=== PATIENT | male | born 1930 | race Caucasian/White ===

== ENCOUNTER 2017-10-01 11:16 | Inpatient (IN) | payer OTHER ==
[~2017-10-01] VITALS: Ht 180.3 cm; Wt 97.0 kg
[2017-10-01 12:18] LABS: BASOPHIL (%) 0.4 % (0-1); BASOPHIL COUNT 0.1 K/uL (0-0.1); EOSINOPHIL (%) 0.6 % (0-5); EOSINOPHIL COUNT 0.1 K/uL (0-0.3); HEMATOCRIT 43.3 % (38.0-50.0); HEMOGLOBIN 14.8 G/DL (12.5-16.6); IMMATURE GRANULOCYTE (%) 1.1 % (0.0-0.7); LYMPHOCYTE (%) 14.2 % (15-42); MCHC 34.2 G/DL (30.0-36.0); MCV 87.7 FL (86-99); MONOCYTE COUNT 1.8 K/uL (0-0.8); NEUTROPHIL (%) 70.7 % (45-76); NEUTROPHIL COUNT 9.9 K/uL (1.8-6.4); PLATELET COUNT 246 K/uL (156-360); RBC DIS.WIDTH-CV 13.3 % (11.8-14.6); RBC DIS.WIDTH-SD 42.5 % (39-53); RED BLOOD COUNT 4.94 M/uL (4.00-5.50); WHITE BLOOD COUNT 14.1 K/uL (4.1-10.2)
[2017-10-01 12:44] LABS: ALBUMIN 3.1 G/DL (3.2-4.8); CHLORIDE 98 MEQ/L (99-109); POTASSIUM 4.2 MEQ/L (3.7-5.4); SODIUM 131 MEQ/L (136-147); TOTAL BILIRUBIN 1.1 MG/DL (0.0-1.0)
[2017-10-01 12:49] LABS: ALKALINE PHOSPHATASE 64 IU/L (3-129); ALT (GPT) 38 IU/L (3-49); AST (GOT) 27 IU/L (2-34); CREATININE 0.9 MG/DL (0.6-1.3); GFR ESTIMATE (CALCULATED) > 59 mL/min/ (58.99-99999); GLUCOSE 283 mg/dL (70-99); TOTAL PROTEIN 6.9 G/DL (6.4-8.3); UREA NITROGEN (BUN) 22 mg/dL (9-23)
[2017-10-01 14:19] LABS: ERTH.SED.RATE 72 MM/HR (0-20)
[2017-10-01] MEDS ORDERED: METFORMIN HCL500 MG PO (16:06)
[2017-10-01 16:32] VITALS: BP 167/73
[2017-10-01 21:28] LABS: APPEARANCE CLEAR ((CLEAR)); BILIRUBIN NEGATIVE; BLOOD SMALL; COLOR YELLOW ((YELLOW)); GLUCOSE (STRIP) 50; KETONES NEGATIVE; LEUKOCYTES NEGATIVE; NITRITE NEGATIVE; PROTEIN (STRIP) NEGATIVE
[2017-10-01 21:30] LABS: BACTERIA NONE SEEN /HPF; EPITHELIAL CELLS RARE /HPF; MUCUS TRACE /LPF; RED BLOOD CELLS 0-5 /HPF (0-5); UCUL ADDED? NO; WHITE BLOOD CELLS 0-5 /HPF (0-5)
[2017-10-01 23:52] VITALS: BP 168/92
[2017-10-02 06:14] LABS: HEMATOCRIT 39.9 % (38.0-50.0); HEMOGLOBIN 13.1 G/DL (12.5-16.6); MCHC 32.8 G/DL (30.0-36.0); MCV 88.5 FL (86-99); PLATELET COUNT 243 K/uL (156-360); RBC DIS.WIDTH-CV 13.4 % (11.8-14.6); RBC DIS.WIDTH-SD 43.8 % (39-53); RED BLOOD COUNT 4.51 M/uL (4.00-5.50); WHITE BLOOD COUNT 12.3 K/uL (4.1-10.2)
[2017-10-02 06:43] LABS: CHLORIDE 102 MEQ/L (99-109); CREATININE 0.7 MG/DL (0.6-1.3); GFR ESTIMATE (CALCULATED) > 59 mL/min/ (58.99-99999); GLUCOSE 193 mg/dL (70-99); SODIUM 134 MEQ/L (136-147); UREA NITROGEN (BUN) 17 mg/dL (9-23)
[2017-10-02 07:54] VITALS: BP 143/81
[2017-10-02 23:53] VITALS: BP 151/67
[2017-10-03 07:22] VITALS: BP 180/84
[2017-10-03 07:25] LABS: Estimated Average Glucose 229 mg/dL (70-123); HEMOGLOBIN A1c (GLYCOHEMOGLOB) 9.6 % HGB (Below 5.7)
[2017-10-03 09:07] LABS: BASOPHIL (%) 0.6 % (0-1); BASOPHIL COUNT 0.1 K/uL (0-0.1); EOSINOPHIL (%) 1.2 % (0-5); EOSINOPHIL COUNT 0.2 K/uL (0-0.3); HEMATOCRIT 41.2 % (38.0-50.0); HEMOGLOBIN 13.7 G/DL (12.5-16.6); IMMATURE GRANULOCYTE (%) 1.8 % (0.0-0.7); LYMPHOCYTE (%) 14.4 % (15-42); MCH 29.3 PG (29.0-34.0); MCHC 33.3 G/DL (30.0-36.0); MONOCYTE (%) 10.6 % (3-12); MONOCYTE COUNT 1.5 K/uL (0-0.8); NEUTROPHIL (%) 71.4 % (45-76); NEUTROPHIL COUNT 9.9 K/uL (1.8-6.4); PLATELET COUNT 282 K/uL (156-360); RBC DIS.WIDTH-CV 13.4 % (11.8-14.6); RBC DIS.WIDTH-SD 43.3 % (39-53); RED BLOOD COUNT 4.68 M/uL (4.00-5.50); WHITE BLOOD COUNT 13.9 K/uL (4.1-10.2)
[2017-10-03 09:30] LABS: CHLORIDE 105 MEQ/L (99-109); CREATININE 0.6 MG/DL (0.6-1.3); GFR ESTIMATE (CALCULATED) > 59 mL/min/ (58.99-99999); GLUCOSE 152 mg/dL (70-99); POTASSIUM 3.8 MEQ/L (3.7-5.4); SODIUM 135 MEQ/L (136-147); UREA NITROGEN (BUN) 11 mg/dL (9-23)
[2017-10-03 15:57] VITALS: BP 178/84
[2017-10-04] VITALS: BP 177/95
[2017-10-04 07:29] LABS: BASOPHIL (%) 0.6 % (0-1); BASOPHIL COUNT 0.1 K/uL (0-0.1); EOSINOPHIL (%) 1.4 % (0-5); EOSINOPHIL COUNT 0.2 K/uL (0-0.3); HEMATOCRIT 40.5 % (38.0-50.0); HEMOGLOBIN 13.8 G/DL (12.5-16.6); IMMATURE GRANULOCYTE (%) 1.9 % (0.0-0.7); LYMPHOCYTE COUNT 2.2 K/uL (1.0-2.8); MCH 30.2 PG (29.0-34.0); MCHC 34.1 G/DL (30.0-36.0); MCV 88.6 FL (86-99); MONOCYTE (%) 12.6 % (3-12); MONOCYTE COUNT 1.7 K/uL (0-0.8); NEUTROPHIL (%) 67.5 % (45-76); NEUTROPHIL COUNT 9.3 K/uL (1.8-6.4); PLATELET COUNT 295 K/uL (156-360); RBC DIS.WIDTH-CV 13.7 % (11.8-14.6); RBC DIS.WIDTH-SD 44.4 % (39-53); RED BLOOD COUNT 4.57 M/uL (4.00-5.50); WHITE BLOOD COUNT 13.7 K/uL (4.1-10.2)
[2017-10-04 07:31] VITALS: BP 186/76
[2017-10-04 08:12] LABS: C-REACTIVE PROTEIN 231.8 MG/L (0-10); CHLORIDE 104 MEQ/L (99-109); CREATININE 0.7 MG/DL (0.6-1.3); GFR ESTIMATE (CALCULATED) > 59 mL/min/ (58.99-99999); MAGNESIUM 2.1 mg/dl (1.3-2.7); POTASSIUM 3.7 MEQ/L (3.7-5.4); SODIUM 137 MEQ/L (136-147); UREA NITROGEN (BUN) 11 mg/dL (9-23)
[2017-10-04 08:15] LABS: GLUCOSE 108 mg/dL (70-99)
[2017-10-04 08:30] LABS: ERTH.SED.RATE 66 MM/HR (0-20)
[2017-10-04 15:49] VITALS: BP 174/88
[2017-10-05 01:00] VITALS: BP 183/73
[2017-10-05 06:24] LABS: HEMATOCRIT 42.9 % (38.0-50.0); HEMOGLOBIN 14.5 G/DL (12.5-16.6); MCH 30.1 PG (29.0-34.0); MCHC 33.8 G/DL (30.0-36.0); MCV 89.2 FL (86-99); PLATELET COUNT 316 K/uL (156-360); RBC DIS.WIDTH-CV 13.8 % (11.8-14.6); RBC DIS.WIDTH-SD 45.2 % (39-53); RED BLOOD COUNT 4.81 M/uL (4.00-5.50)
[2017-10-05 06:56] LABS: CHLORIDE 110 MEQ/L (99-109); GLUCOSE 99 mg/dL (70-99); POTASSIUM 3.7 MEQ/L (3.7-5.4); UREA NITROGEN (BUN) 17 mg/dL (9-23)
[2017-10-05 06:58] LABS: CREATININE 1.3 MG/DL (0.6-1.3); GFR ESTIMATE (CALCULATED) 56 mL/min/ (58.99-99999); SODIUM 144 MEQ/L (136-147)
[2017-10-05 07:46] VITALS: BP 180/88
[2017-10-05 16:11] VITALS: BP 142/78
[2017-10-06 00:01] VITALS: BP 166/83
[2017-10-06 06:38] LABS: HEMATOCRIT 44.8 % (38.0-50.0); HEMOGLOBIN 14.6 G/DL (12.5-16.6); MCH 29.5 PG (29.0-34.0); MCHC 32.6 G/DL (30.0-36.0); MCV 90.5 FL (86-99); PLATELET COUNT 346 K/uL (156-360); RBC DIS.WIDTH-CV 13.8 % (11.8-14.6); RBC DIS.WIDTH-SD 46.3 % (39-53); RED BLOOD COUNT 4.95 M/uL (4.00-5.50); WHITE BLOOD COUNT 10.6 K/uL (4.1-10.2)
[2017-10-06 08:05] VITALS: BP 188/89
[2017-10-06 16:28] VITALS: BP 184/84
[2017-10-06 23:58] VITALS: BP 162/80
[2017-10-07 06:41] LABS: HEMATOCRIT 42.7 % (38.0-50.0); HEMOGLOBIN 13.9 G/DL (12.5-16.6); MCH 28.7 PG (29.0-34.0); MCHC 32.6 G/DL (30.0-36.0); PLATELET COUNT 346 K/uL (156-360); RBC DIS.WIDTH-CV 13.3 % (11.8-14.6); RBC DIS.WIDTH-SD 42.9 % (39-53); RED BLOOD COUNT 4.85 M/uL (4.00-5.50); WHITE BLOOD COUNT 11.7 K/uL (4.1-10.2)
[2017-10-07 07:09] LABS: CHLORIDE 108 MEQ/L (99-109); CREATININE 1.2 MG/DL (0.6-1.3); GFR ESTIMATE (CALCULATED) > 59 mL/min/ (58.99-99999); GLUCOSE 96 mg/dL (70-99); POTASSIUM 3.5 MEQ/L (3.7-5.4); SODIUM 144 MEQ/L (136-147); UREA NITROGEN (BUN) 14 mg/dL (9-23)
[2017-10-07 07:46] VITALS: BP 162/85
[2017-10-07] MEDS ORDERED: LISINOPRIL10 MG PO (11:04)
[2017-10-07] MEDS ORDERED: GENTAMICIN SULFA5 ML BOTH EYES (11:05)
[2017-10-07] MEDS ORDERED: FLORASTOR250 MG PO (11:05)
[2017-10-07] MEDS ORDERED: SANTYL30 GM TP (11:06)
[2017-10-07] MEDS ORDERED: LEVEMIR100 UNIT/2 SC (11:06)
[2017-10-07] MEDS ORDERED: AMLODIPINE BESYL5 MG PO (11:07)
[2017-10-07] MEDS ORDERED: COLCHICINE0.6 M1 PO (11:07)
[2017-10-07] MEDS ORDERED: LIDOCARE1 EACH TP (11:09)
[2017-10-07] MEDS ORDERED: AUGMENTIN875 MG PO (11:43)
[2017-10-07] MEDS ORDERED: BACTRIM,SEPT1 TABLET PO (11:43)
== END 2017-10-07 15:23 | DRG 638 ==
LOC: EME 11:16 → EDOF 13:51 → 5SOUTH 13:51 → ENRESERV 13:52 → 5SOUTH 16:14
PROVIDERS: Emergency Medicine; Internal Medicine; Physician Assistant
PROC: 0HDMXZZ Extraction of Right Foot Skin, External Approach (ICD-10-PCS; principal; 2017-10-04)
DX: E11.621 Type 2 diabetes mellitus with foot ulcer (principal); L97.519 Non-pressure chronic ulcer of other part of right foot with unspecified severity; L97.419 Non-pressure chronic ulcer of right heel and midfoot with unspecified severity; L89.620 Pressure ulcer of left heel, unstageable; E11.628 Type 2 diabetes mellitus with other skin complications; L03.115 Cellulitis of right lower limb; L03.114 Cellulitis of left upper limb; S81.801A Unspecified open wound, right lower leg, initial encounter; E86.0 Dehydration; E86.1 Hypovolemia; E11.51 Type 2 diabetes mellitus with diabetic peripheral angiopathy without gangrene; I70.234 Atherosclerosis of native arteries of right leg with ulceration of heel and midfoot; I70.202 Unspecified atherosclerosis of native arteries of extremities, left leg; E87.1 Hypo-osmolality and hyponatremia; B96.89 Other specified bacterial agents as the cause of diseases classified elsewhere; L03.031 Cellulitis of right toe; M25.422 Effusion, left elbow; R70.0 Elevated erythrocyte sedimentation rate; R79.82 Elevated C-reactive protein (CRP); M10.9 Gout, unspecified; I10 Essential (primary) hypertension; M17.0 Bilateral primary osteoarthritis of knee; H10.89 Other conjunctivitis; W01.0XXA Fall on same level from slipping, tripping and stumbling without subsequent striking against object, initial encounter; Y92.009 Unspecified place in unspecified non-institutional (private) residence as the place of occurrence of the external cause; Z79.84 Long term (current) use of oral hypoglycemic drugs
CPT/HCPCS: 73080; 73720; 75635; 80048; 80053; 80202; 81003; 82010; 82948; 83036; 83605; 83735; 84550; 85025; 85027; 85651; 86140; 87040; 87070; 87075; 87076; 87205; 87641; 93926; 93971; 97530 GO; 97530 GP; 99281; 99285; A6260; J1650; J1815; J2270; J2543; J3370; J7030; J7050; S0028

== ENCOUNTER 2017-10-09 14:42 | Inpatient (IN) | payer OTHER ==
[~2017-10-09] VITALS: Ht 175.3 cm; Wt 95.4 kg
[~2017-10-09 14:42] MED LIST: AMLODIPINE BESYL5 MG PO; AUGMENTIN875 MG PO; BACTRIM,SEPT1 TABLET PO; COLCHICINE0.6 M1 PO; FLORASTOR250 MG PO; GENTAMICIN SULFA5 ML BOTH EYES; LEVEMIR100 UNIT/2 SC; LIDOCARE1 EACH TP; LISINOPRIL10 MG PO; METFORMIN HCL500 MG PO; SANTYL30 GM TP
[2017-10-09 15:25] LABS: BASOPHIL (%) 0.3 % (0-1); BASOPHIL COUNT 0.1 K/uL (0-0.1); EOSINOPHIL (%) 0.3 % (0-5); EOSINOPHIL COUNT 0.1 K/uL (0-0.3); HEMATOCRIT 42.1 % (38.0-50.0); HEMOGLOBIN 14.3 G/DL (12.5-16.6); IMMATURE GRANULOCYTE (%) 0.9 % (0.0-0.7); LYMPHOCYTE (%) 6.9 % (15-42); LYMPHOCYTE COUNT 1.8 K/uL (1.0-2.8); MCH 29.8 PG (29.0-34.0); MCV 87.7 FL (86-99); MONOCYTE (%) 6.6 % (3-12); MONOCYTE COUNT 1.7 K/uL (0-0.8); NEUTROPHIL COUNT 22.3 K/uL (1.8-6.4); PLATELET COUNT 377 K/uL (156-360); RBC DIS.WIDTH-CV 13.7 % (11.8-14.6); RBC DIS.WIDTH-SD 44.1 % (39-53); WHITE BLOOD COUNT 26.3 K/uL (4.1-10.2)
[2017-10-09 15:27] LABS: INTER. NORMALIZED RATIO 1.3
[2017-10-09 15:30] LABS: PTT 28.6 SEC (25-37)
[2017-10-09 15:37] LABS: AMYLASE 98 IU/L (1-118); CHLORIDE 103 mEq/L (99-109); POTASSIUM 3.4 mEq/L (3.7-5.4)
[2017-10-09 15:39] LABS: GLUCOSE 110 mg/dL (70-99)
[2017-10-09 15:40] LABS: SODIUM 136 mEq/L (136-147)
[2017-10-09 15:42] LABS: SERUM ETHYL ALCOHOL < 10 mg/dL
[2017-10-09 15:43] LABS: CREATININE 3.5 mg/dL (0.6-1.3); GFR ESTIMATE (CALCULATED) 18 mL/min/ (58.99-99999)
[2017-10-09 15:45] LABS: TROP-I INTERPRETATION NEGATIVE; TROPONIN-I 0.01 ng/mL (0.0-0.30); UREA NITROGEN (BUN) 25 mg/dL (9-23)
[2017-10-09 15:46] LABS: LIPASE 18 U/L (1.0-51.0)
[2017-10-09 16:16] LABS: HDL CHOLESTEROL 30 MG/DL (Desirable>=40); LDL CHOLESTEROL 78 mg/dL (Desirable<100); NON-HDL CHOLESTEROL 105 mg/dL (Desirable<160); TOTAL CHOLESTEROL 135 mg/dL (Desirable<200); TRIGLYCERIDES 133 MG/DL (Normal: <150)
[2017-10-09] MEDS ORDERED: TYLENOL REGULA325 MG PO (16:47)
[2017-10-09 16:50] LABS: TOTAL PROTEIN 6.8 g/dL (6.4-8.3)
[2017-10-09 16:52] LABS: TOTAL BILIRUBIN 0.4 mg/dL (0.0-1.0)
[2017-10-09 16:53] LABS: ALKALINE PHOSPHATASE 61 IU/L (3-129)
[2017-10-09 16:55] LABS: AST (GOT) 25 IU/L (2-34)
[2017-10-09 16:56] LABS: ALT (GPT) 35 IU/L (3-49); DIRECT BILIRUBIN 0.3 mg/dL (0.0-0.3)
[2017-10-09 16:58] LABS: APPEARANCE CLEAR ((CLEAR)); BILIRUBIN NEGATIVE; BLOOD LARGE; COLOR YELLOW ((YELLOW)); GLUCOSE (STRIP) NEGATIVE; KETONES NEGATIVE; LEUKOCYTES NEGATIVE; NITRITE NEGATIVE; PROTEIN (STRIP) NEGATIVE; UROBILINOGEN 0.2 MG/DL (0.2-1.0)
[2017-10-09 17:12] LABS: AMPHETAMINE NEGATIVE (500 ng/mL); BACTERIA NONE SEEN /HPF; BARBITURATES NEGATIVE (200 ng/mL); BENZODIAZEPINES NEGATIVE (150 ng/mL); COCAINE NEGATIVE (150 ng/mL); EPITHELIAL CELLS RARE /HPF; METHADONE NEGATIVE (200 ng/mL); METHAMPHETAMINE NEGATIVE (500 ng/mL); MUCUS NONE SEEN /LPF; OPIATES (MORPHINE) NEGATIVE (100 ng/mL); OXYCODONE NEGATIVE (100 ng/mL); PHENCYCLIDINE NEGATIVE (25 ng/mL); RED BLOOD CELLS TNTC /HPF (0-5); THC CANNABINOIDS NEGATIVE (50 ng/mL); TRICYCLIC ANTIDEPRESSANTS NEGATIVE (300 ng/mL); UCUL ADDED? YES; WHITE BLOOD CELLS 0-5 /HPF (0-5)
[2017-10-09 17:13] LABS: BUPRENORPHINE NEGATIVE (10 ng/mL); PROPOXYPHENE NEGATIVE (300 ng/mL)
[2017-10-09 17:59] LABS: Estimated Average Glucose 220 mg/dL (70-123); HEMOGLOBIN A1c (GLYCOHEMOGLOB) 9.3 % HGB (Below 5.7)
[2017-10-09 20:55] VITALS: BP 181/94
[2017-10-10] VITALS (7 sets, daily range): BP systolic 169–198; BP diastolic 84–104
[2017-10-10 06:34] LABS: BASOPHIL (%) 0.3 % (0-1); BASOPHIL COUNT 0.1 K/uL (0-0.1); EOSINOPHIL (%) 0.3 % (0-5); EOSINOPHIL COUNT 0.1 K/uL (0-0.3); HEMATOCRIT 41.8 % (38.0-50.0); HEMOGLOBIN 13.8 G/DL (12.5-16.6); IMMATURE GRANULOCYTE (%) 0.9 % (0.0-0.7); LYMPHOCYTE (%) 7.2 % (15-42); LYMPHOCYTE COUNT 1.7 K/uL (1.0-2.8); MCH 29.2 PG (29.0-34.0); MCV 88.4 FL (86-99); MONOCYTE (%) 7.1 % (3-12); MONOCYTE COUNT 1.6 K/uL (0-0.8); NEUTROPHIL (%) 84.2 % (45-76); NEUTROPHIL COUNT 19.3 K/uL (1.8-6.4); PLATELET COUNT 368 K/uL (156-360); RBC DIS.WIDTH-CV 13.9 % (11.8-14.6); RBC DIS.WIDTH-SD 45.1 % (39-53); RED BLOOD COUNT 4.73 M/uL (4.00-5.50)
[2017-10-10 07:16] LABS: CHLORIDE 107 MEQ/L (99-109); CREATININE 3.7 MG/DL (0.6-1.3); GFR ESTIMATE (CALCULATED) 17 mL/min/ (58.99-99999); GLUCOSE 154 mg/dL (70-99); POTASSIUM 3.4 MEQ/L (3.7-5.4); UREA NITROGEN (BUN) 30 mg/dL (9-23)
[2017-10-10 07:21] LABS: SODIUM 143 MEQ/L (136-147)
[2017-10-11 03:45] VITALS: BP 179/86
[2017-10-11 06:43] LABS: BASOPHIL (%) 0.5 % (0-1); BASOPHIL COUNT 0.1 K/uL (0-0.1); EOSINOPHIL (%) 1.7 % (0-5); EOSINOPHIL COUNT 0.3 K/uL (0-0.3); HEMATOCRIT 44.5 % (38.0-50.0); HEMOGLOBIN 14.5 G/DL (12.5-16.6); LYMPHOCYTE (%) 9.6 % (15-42); LYMPHOCYTE COUNT 1.6 K/uL (1.0-2.8); MCH 29.1 PG (29.0-34.0); MCHC 32.6 G/DL (30.0-36.0); MCV 89.2 FL (86-99); MONOCYTE COUNT 1.5 K/uL (0-0.8); NEUTROPHIL (%) 78.2 % (45-76); PLATELET COUNT 426 K/uL (156-360); RBC DIS.WIDTH-CV 14.1 % (11.8-14.6); RBC DIS.WIDTH-SD 45.5 % (39-53); RED BLOOD COUNT 4.99 M/uL (4.00-5.50); WHITE BLOOD COUNT 16.6 K/uL (4.1-10.2)
[2017-10-11 07:13] LABS: ALBUMIN 2.7 G/DL (3.2-4.8); ALKALINE PHOSPHATASE 54 IU/L (3-129); ALT (GPT) 21 IU/L (3-49); AST (GOT) 16 IU/L (2-34); CHLORIDE 114 MEQ/L (99-109); CHLORIDE 115 MEQ/L (99-109); GFR ESTIMATE (CALCULATED) 32 mL/min/ (58.99-99999); GFR ESTIMATE (CALCULATED) 34 mL/min/ (58.99-99999); GLUCOSE 212 mg/dL (70-99); GLUCOSE 215 mg/dL (70-99); PHOSPHORUS 2.8 mg/dL (2.5-4.9); POTASSIUM 3.6 MEQ/L (3.7-5.4); SODIUM 150 MEQ/L (136-147); TOTAL BILIRUBIN 0.6 MG/DL (0.0-1.0); UREA NITROGEN (BUN) 22 mg/dL (9-23); VANCOMYCIN, TROUGH 11.6 MCG/ML (10-20)
[2017-10-11 07:15] LABS: CREATININE 2.1 MG/DL (0.6-1.3)
[2017-10-11 07:51] VITALS: BP 190/92
[2017-10-11 12:16] VITALS: BP 186/88
[2017-10-11 16:04] VITALS: BP 184/90
[2017-10-11 19:13] VITALS: BP 189/90
[2017-10-11 22:11] LABS: C DIFF TOXIN NEGATIVE (NEGATIVE)
[2017-10-11 23:28] VITALS: BP 182/96; BP 182/960
[2017-10-12 03:38] VITALS: BP 181/92
[2017-10-12 07:18] LABS: BASOPHIL (%) 0.6 % (0-1); BASOPHIL COUNT 0.1 K/uL (0-0.1); EOSINOPHIL (%) 2.7 % (0-5); EOSINOPHIL COUNT 0.4 K/uL (0-0.3); HEMATOCRIT 44.1 % (38.0-50.0); HEMOGLOBIN 14.3 G/DL (12.5-16.6); IMMATURE GRANULOCYTE (%) 0.9 % (0.0-0.7); LYMPHOCYTE (%) 13.4 % (15-42); LYMPHOCYTE COUNT 1.9 K/uL (1.0-2.8); MCH 29.5 PG (29.0-34.0); MCHC 32.4 G/DL (30.0-36.0); MCV 91.1 FL (86-99); MONOCYTE (%) 8.5 % (3-12); MONOCYTE COUNT 1.2 K/uL (0-0.8); NEUTROPHIL (%) 73.9 % (45-76); NEUTROPHIL COUNT 10.6 K/uL (1.8-6.4); PLATELET COUNT 412 K/uL (156-360); RBC DIS.WIDTH-CV 14.4 % (11.8-14.6); RBC DIS.WIDTH-SD 48.2 % (39-53); RED BLOOD COUNT 4.84 M/uL (4.00-5.50); WHITE BLOOD COUNT 14.4 K/uL (4.1-10.2)
[2017-10-12 07:41] LABS: ALBUMIN 2.6 G/DL (3.2-4.8); CHLORIDE 116 MEQ/L (99-109); CREATININE 1.3 MG/DL (0.6-1.3); GFR ESTIMATE (CALCULATED) 56 mL/min/ (58.99-99999); GLUCOSE 208 mg/dL (70-99); PHOSPHORUS 2.2 mg/dL (2.5-4.9); POTASSIUM 3.1 MEQ/L (3.7-5.4); SODIUM 152 MEQ/L (136-147); UREA NITROGEN (BUN) 16 mg/dL (9-23)
[2017-10-12 08:09] VITALS: BP 138/88
[2017-10-12 12:03] VITALS: BP 176/83
[2017-10-12 15:55] VITALS: BP 189/86
[2017-10-12 19:59] VITALS: BP 176/89
[2017-10-13 00:06] VITALS: BP 167/88
[2017-10-13 03:58] VITALS: BP 168/86
[2017-10-13 07:44] LABS: BASOPHIL (%) 0.7 % (0-1); BASOPHIL COUNT 0.1 K/uL (0-0.1); EOSINOPHIL (%) 3.1 % (0-5); EOSINOPHIL COUNT 0.4 K/uL (0-0.3); HEMATOCRIT 44.5 % (38.0-50.0); IMMATURE GRANULOCYTE (%) 0.6 % (0.0-0.7); LYMPHOCYTE (%) 13.7 % (15-42); LYMPHOCYTE COUNT 1.7 K/uL (1.0-2.8); MCH 28.7 PG (29.0-34.0); MCHC 31.5 G/DL (30.0-36.0); MCV 91.2 FL (86-99); MONOCYTE (%) 8.5 % (3-12); MONOCYTE COUNT 1.1 K/uL (0-0.8); NEUTROPHIL (%) 73.4 % (45-76); NEUTROPHIL COUNT 9.1 K/uL (1.8-6.4); PLATELET COUNT 419 K/uL (156-360); RBC DIS.WIDTH-CV 13.9 % (11.8-14.6); RBC DIS.WIDTH-SD 46.8 % (39-53); RED BLOOD COUNT 4.88 M/uL (4.00-5.50); WHITE BLOOD COUNT 12.4 K/uL (4.1-10.2)
[2017-10-13 08:05] LABS: ALBUMIN 2.7 G/DL (3.2-4.8); CHLORIDE 115 MEQ/L (99-109); GFR ESTIMATE (CALCULATED) > 59 mL/min/ (58.99-99999); GLUCOSE 181 mg/dL (70-99); PHOSPHORUS 2.2 mg/dL (2.5-4.9); POTASSIUM 3.7 MEQ/L (3.7-5.4); SODIUM 152 MEQ/L (136-147); UREA NITROGEN (BUN) 12 mg/dL (9-23)
[2017-10-13 13:24] VITALS: BP 170/78
[2017-10-14 00:05] VITALS: BP 150/87
[2017-10-14 05:19] LABS: BASOPHIL (%) 0.8 % (0-1); BASOPHIL COUNT 0.1 K/uL (0-0.1); EOSINOPHIL (%) 3.2 % (0-5); EOSINOPHIL COUNT 0.5 K/uL (0-0.3); HEMATOCRIT 43.6 % (38.0-50.0); HEMOGLOBIN 13.8 G/DL (12.5-16.6); IMMATURE GRANULOCYTE (%) 0.9 % (0.0-0.7); LYMPHOCYTE (%) 17.8 % (15-42); LYMPHOCYTE COUNT 2.5 K/uL (1.0-2.8); MCH 28.7 PG (29.0-34.0); MCHC 31.7 G/DL (30.0-36.0); MCV 90.6 FL (86-99); MONOCYTE (%) 7.4 % (3-12); MONOCYTE COUNT 1.1 K/uL (0-0.8); NEUTROPHIL (%) 69.9 % (45-76); PLATELET COUNT 443 K/uL (156-360); RBC DIS.WIDTH-CV 13.8 % (11.8-14.6); RBC DIS.WIDTH-SD 46.4 % (39-53); RED BLOOD COUNT 4.81 M/uL (4.00-5.50); WHITE BLOOD COUNT 14.2 K/uL (4.1-10.2)
[2017-10-14 05:43] LABS: CHLORIDE 112 MEQ/L (99-109); CREATININE 1.1 MG/DL (0.6-1.3); GFR ESTIMATE (CALCULATED) > 59 mL/min/ (58.99-99999); GLUCOSE 206 mg/dL (70-99); SODIUM 146 MEQ/L (136-147); UREA NITROGEN (BUN) 14 mg/dL (9-23)
[2017-10-14 07:47] VITALS: BP 197/95
[2017-10-14 15:29] VITALS: BP 162/81
[2017-10-15 00:14] VITALS: BP 205/92
[2017-10-15 00:24] VITALS: BP 168/86
[2017-10-15 08:44] VITALS: BP 191/84
[2017-10-15 15:00] VITALS: BP 177/76
[2017-10-16 00:23] VITALS: BP 145/66
[2017-10-16 07:36] VITALS: BP 164/75
[2017-10-16 13:13] VITALS: BP 128/72
[2017-10-16 15:53] VITALS: BP 157/93
[2017-10-16 23:29] VITALS: BP 141/79
[2017-10-17 07:08] LABS: ALBUMIN 2.2 G/DL (3.2-4.8); CHLORIDE 107 MEQ/L (99-109); CREATININE 1.2 MG/DL (0.6-1.3); GFR ESTIMATE (CALCULATED) > 59 mL/min/ (58.99-99999); GLUCOSE 206 mg/dL (70-99); PHOSPHORUS 2.9 mg/dL (2.5-4.9); POTASSIUM 4.5 MEQ/L (3.7-5.4); UREA NITROGEN (BUN) 17 mg/dL (9-23)
[2017-10-17 07:18] LABS: SODIUM 138 MEQ/L (136-147)
[2017-10-17 07:30] VITALS: BP 111/65
[2017-10-17] MEDS ORDERED: XARELTO20 MG PO (10:20)
[2017-10-17] MEDS ORDERED: ATORVASTATIN CA40 MG PO (10:20)
[2017-10-17] MEDS ORDERED: LOPRESSOR25 MG PO (10:21)
[2017-10-17] MEDS ORDERED: APRESOLINE50 MG PO (10:21)
[2017-10-17] MEDS ORDERED: AMLODIPINE BESY10 MG PO (10:22)
[2017-10-17] MEDS ORDERED: NOVOLOG PE100 UNITS/ SC (10:23)
[2017-10-17] MEDS ORDERED: COLCHICINE0.6 M1 PO (10:24)
[2017-10-17 12:00] VITALS: BP 167/74
[2017-10-17 15:30] VITALS: BP 131/69
[2017-10-17 20:57] VITALS: BP 151/83
[2017-10-18] VITALS: BP 169/78
[2017-10-18 07:35] VITALS: BP 132/63
[2017-10-18 13:34] VITALS: BP 128/56
[2017-10-18 22:53] VITALS: BP 140/72
[2017-10-18 23:54] VITALS: BP 176/85
[2017-10-19 08:30] VITALS: BP 172/83
[2017-10-19 15:57] VITALS: BP 147/71
[2017-10-20 00:12] VITALS: BP 122/65
[2017-10-20 09:18] VITALS: BP 164/86
[2017-10-21] MEDS ORDERED: COLCHICINE0.6 M1 PO (22:20)
[2017-10-21] MEDS ORDERED: LIPITOR40 MG PO (22:20)
[2017-10-21] MEDS ORDERED: XARELTO20 MG PO (22:22)
[2017-10-21] MEDS ORDERED: FLORASTOR250 MG PO (22:23)
[2017-10-21] MEDS ORDERED: LIDOCARE1 EACH TP (22:24)
[2017-10-21] MEDS ORDERED: LOPRESSOR25 MG PO (22:24)
[2017-10-21] MEDS ORDERED: NOVOLOG PE100 UNITS/ SC (22:25)
[2017-10-21] MEDS ORDERED: TRAMADOL HCL50 MG PO (22:26)
[2017-10-21] MEDS ORDERED: SANTYL30 GM TP (22:27)
[2017-10-21] MEDS ORDERED: TINACTIN15 GM TP (22:28)
== END 2017-10-20 12:18 | DRG 65 ==
LOC: EME 14:42 → EDOF 17:15 → 5SOUTH 17:15 → ENRESERV 17:26 → 5SOUTH 20:51 → ENPENDDIS 10-20 10:49 → 5SOUTH 10-20 12:18
PROVIDERS: Emergency Medicine; Internal Medicine; Internal Medicine Nephrology
DX: I63.522 Cerebral infarction due to unspecified occlusion or stenosis of left anterior cerebral artery (principal); I48.2 Chronic atrial fibrillation; E11.65 Type 2 diabetes mellitus with hyperglycemia; G81.91 Hemiplegia, unspecified affecting right dominant side; E87.0 Hyperosmolality and hypernatremia; I10 Essential (primary) hypertension; N17.9 Acute kidney failure, unspecified; E87.6 Hypokalemia; R47.01 Aphasia; E87.2 Acidosis; E11.51 Type 2 diabetes mellitus with diabetic peripheral angiopathy without gangrene; M17.0 Bilateral primary osteoarthritis of knee; N13.9 Obstructive and reflux uropathy, unspecified; L97.429 Non-pressure chronic ulcer of left heel and midfoot with unspecified severity; L89.892 Pressure ulcer of other site, stage 2; E11.621 Type 2 diabetes mellitus with foot ulcer; L97.519 Non-pressure chronic ulcer of other part of right foot with unspecified severity; T50.8X5A Adverse effect of diagnostic agents, initial encounter; N14.1 Nephropathy induced by other drugs, medicaments and biological substances; I87.2 Venous insufficiency (chronic) (peripheral); Z68.32 Body mass index [BMI] 32.0-32.9, adult; Z79.01 Long term (current) use of anticoagulants; Z86.73 Personal history of transient ischemic attack (TIA), and cerebral infarction without residual deficits
CPT/HCPCS: 70450; 70496; 70498; 70551; 71010; 74230; 76770; 80048; 80053; 80061; 80069; 80076; 80202; 81003; 82150; 82570; 82948; 83036; 83605; 83690; 83935; 84300; 84484; 84550; 85025; 85610; 85730; 86850; 86900; 86901; 87040; 87086 GA; 87493; 92507 GN; 92523 GN; 92611 GN; 93005; 93306; 93880; 93971; 97530 GO; 97530 GP; 99281; 99285; C1755; G0480; J0295; J1644; J1815; J3370; J3480; J7030; J7042; J7050; J7070

== ENCOUNTER 2017-10-21 18:39 | Observation (INO) | payer OTHER ==
[~2017-10-21] VITALS: Ht 167.6 cm; Wt 100.0 kg
[~2017-10-21 18:39] MED LIST changes: +AMLODIPINE BESY10 MG PO; +APRESOLINE50 MG PO; +ATORVASTATIN CA40 MG PO; +LOPRESSOR25 MG PO; +NOVOLOG PE100 UNITS/ SC; +TYLENOL REGULA325 MG PO; +XARELTO20 MG PO
[2017-10-21 19:46] LABS: BASOPHIL (%) 0.3 % (0-1); EOSINOPHIL (%) 0.7 % (0-5); EOSINOPHIL COUNT 0.1 K/uL (0-0.3); HEMATOCRIT 41.4 % (38.0-50.0); HEMOGLOBIN 13.7 G/DL (12.5-16.6); IMMATURE GRANULOCYTE (%) 0.5 % (0.0-0.7); LYMPHOCYTE COUNT 1.9 K/uL (1.0-2.8); MCH 29.3 PG (29.0-34.0); MCHC 33.1 G/DL (30.0-36.0); MCV 88.7 FL (86-99); MONOCYTE (%) 9.8 % (3-12); MONOCYTE COUNT 1.5 K/uL (0-0.8); NEUTROPHIL (%) 75.7 % (45-76); NEUTROPHIL COUNT 11.2 K/uL (1.8-6.4); PLATELET COUNT 322 K/uL (156-360); RBC DIS.WIDTH-CV 13.7 % (11.8-14.6); RBC DIS.WIDTH-SD 44.2 % (39-53); RED BLOOD COUNT 4.67 M/uL (4.00-5.50); WHITE BLOOD COUNT 14.8 K/uL (4.1-10.2)
[2017-10-21 19:54] LABS: CHLORIDE 112 mEq/L (99-109); POTASSIUM 4.4 mEq/L (3.7-5.4); SODIUM 141 mEq/L (136-147)
[2017-10-21 19:56] LABS: GLUCOSE 146 mg/dL (70-99)
[2017-10-21 20:00] LABS: CREATININE 1.5 mg/dL (0.6-1.3); GFR ESTIMATE (CALCULATED) 47 mL/min/ (58.99-99999)
[2017-10-21 20:19] LABS: UREA NITROGEN (BUN) 29 mg/dL (9-23)
[2017-10-21 21:10] LABS: APPEARANCE SL.HAZY ((CLEAR)); BILIRUBIN NEGATIVE; BLOOD LARGE; COLOR YELLOW ((YELLOW)); GLUCOSE (STRIP) NEGATIVE; KETONES NEGATIVE; LEUKOCYTES NEGATIVE; NITRITE NEGATIVE; PROTEIN (STRIP) 30; UROBILINOGEN 0.2 MG/DL (0.2-1.0)
[2017-10-21 21:35] LABS: BACTERIA NONE SEEN /HPF; EPITHELIAL CELLS RARE /HPF; MUCUS TRACE /LPF; RED BLOOD CELLS TNTC /HPF (0-5); UCUL ADDED? YES
[2017-10-21] MEDS ORDERED: COLCHICINE0.6 M1 PO (22:20)
[2017-10-21] MEDS ORDERED: LIPITOR40 MG PO (22:20)
[2017-10-21] MEDS ORDERED: XARELTO20 MG PO (22:22)
[2017-10-21] MEDS ORDERED: FLORASTOR250 MG PO (22:23)
[2017-10-21] MEDS ORDERED: LOPRESSOR25 MG PO (22:24)
[2017-10-21] MEDS ORDERED: LIDOCARE1 EACH TP (22:24)
[2017-10-21] MEDS ORDERED: NOVOLOG PE100 UNITS/ SC (22:25)
[2017-10-21] MEDS ORDERED: TRAMADOL HCL50 MG PO (22:26)
[2017-10-21] MEDS ORDERED: SANTYL30 GM TP (22:27)
[2017-10-21] MEDS ORDERED: TINACTIN15 GM TP (22:28)
[2017-10-22 04:45] VITALS: BP 148/68
[2017-10-22 09:30] VITALS: BP 133/64
[2017-10-22 09:32] LABS: BASOPHIL (%) 0.4 % (0-1); BASOPHIL COUNT 0.1 K/uL (0-0.1); EOSINOPHIL (%) 1.2 % (0-5); EOSINOPHIL COUNT 0.2 K/uL (0-0.3); HEMATOCRIT 41.9 % (38.0-50.0); HEMOGLOBIN 13.7 G/DL (12.5-16.6); IMMATURE GRANULOCYTE (%) 0.9 % (0.0-0.7); LYMPHOCYTE (%) 15.1 % (15-42); LYMPHOCYTE COUNT 2.1 K/uL (1.0-2.8); MCH 29.7 PG (29.0-34.0); MCHC 32.7 G/DL (30.0-36.0); MCV 90.9 FL (86-99); MONOCYTE (%) 9.4 % (3-12); MONOCYTE COUNT 1.3 K/uL (0-0.8); NEUTROPHIL COUNT 10.3 K/uL (1.8-6.4); PLATELET COUNT 292 K/uL (156-360); RBC DIS.WIDTH-SD 46.5 % (39-53); RED BLOOD COUNT 4.61 M/uL (4.00-5.50); WHITE BLOOD COUNT 14.1 K/uL (4.1-10.2)
[2017-10-22 10:42] LABS: CHLORIDE 115 MEQ/L (99-109); CREATININE 1.1 MG/DL (0.6-1.3); GFR ESTIMATE (CALCULATED) > 59 mL/min/ (58.99-99999); GLUCOSE 171 mg/dL (70-99); POTASSIUM 4.1 MEQ/L (3.7-5.4); SODIUM 147 MEQ/L (136-147); UREA NITROGEN (BUN) 27 mg/dL (9-23)
[2017-10-22 12:35] VITALS: BP 126/59
[2017-10-22 16:11] VITALS: BP 158/65
[2017-10-22 20:00] VITALS: BP 142/78
[2017-10-23 00:41] VITALS: BP 136/69
[2017-10-23 06:29] LABS: HEMATOCRIT 38.2 % (38.0-50.0); HEMOGLOBIN 12.3 G/DL (12.5-16.6); MCH 29.5 PG (29.0-34.0); MCHC 32.2 G/DL (30.0-36.0); MCV 91.6 FL (86-99); PLATELET COUNT 304 K/uL (156-360); RBC DIS.WIDTH-SD 47.2 % (39-53); RED BLOOD COUNT 4.17 M/uL (4.00-5.50); WHITE BLOOD COUNT 12.8 K/uL (4.1-10.2)
[2017-10-23 06:54] LABS: CHLORIDE 115 MEQ/L (99-109); GFR ESTIMATE (CALCULATED) > 59 mL/min/ (58.99-99999); GLUCOSE 135 mg/dL (70-99); POTASSIUM 3.9 MEQ/L (3.7-5.4); SODIUM 147 MEQ/L (136-147); UREA NITROGEN (BUN) 25 mg/dL (9-23)
[2017-10-23 08:02] VITALS: BP 136/77
[2017-10-23] MEDS ORDERED: BACTRIM,SEPT1 TABLET PO (10:19)
[2017-10-23 11:19] VITALS: BP 174/75
[2017-10-23 15:28] VITALS: BP 182/83
[2017-10-23 23:53] VITALS: BP 148/70
[2017-10-24 06:35] VITALS: BP 152/78
[2017-10-24 11:26] VITALS: BP 140/75
== END 2017-10-24 13:50 ==
LOC: EME 18:39 → EDOF 10-22 02:55 → ENRESERV 10-22 02:55 → 5WEST 10-22 02:55 → ENRESERV 10-22 03:07 → 5WEST 10-22 04:16
PROVIDERS: Emergency Medicine; Hospitalist; Physician Assistant
DX: R41.82 Altered mental status, unspecified (principal); N39.0 Urinary tract infection, site not specified; E86.0 Dehydration; I69.320 Aphasia following cerebral infarction; I69.351 Hemiplegia and hemiparesis following cerebral infarction affecting right dominant side; Z79.01 Long term (current) use of anticoagulants; E11.65 Type 2 diabetes mellitus with hyperglycemia; E11.621 Type 2 diabetes mellitus with foot ulcer; L97.519 Non-pressure chronic ulcer of other part of right foot with unspecified severity; N17.9 Acute kidney failure, unspecified; I73.9 Peripheral vascular disease, unspecified; I48.2 Chronic atrial fibrillation; Z86.19 Personal history of other infectious and parasitic diseases; I10 Essential (primary) hypertension; Z79.4 Long term (current) use of insulin
CPT/HCPCS: 70450; 71045; 80048; 81003; 82948; 83605; 85025; 85027; 87086; 99281; 99285; G0378; J0696; J1815; J7030